=== PATIENT | female | born 1945 | race Caucasian/White ===

== ENCOUNTER 2025-03-10 10:40 | Outpatient (AMB) | payer MEDICARE, SELFPAY ==
--- NOTE | 2025-03-10 10:51 | MHC.OFFVIS ---
Intake Visit Reasons: 6mnth Allergies erythromycin base (ERYTHROMYCIN BASE) Allergy (Unknown, Unverified 02/11/20 15:30) ABD PAIN, VOMITING tetracycline (TETRACYCLINE) Allergy (Unknown, Unverified 02/11/20 15:30) ABD PAIN, VOMITING Erythrocin Allergy (Unknown, Uncoded 07/16/19 00:00) HPI Comments Details: 79 yo RH woman with atrial fibb, s/p cardiac pacemaker, anxiety, insomnia, and benign essential tremor. She is presenting with concerns regarding medication management and persistent fatigue. Currently prescribed trazodone and escitalopram, the patient reports effective insomnia management with trazodone, while noting increased fatigue potentially related to escitalopram usage. She describes a mild tremor, reduced in severity compared to earlier, and questions whether age or medication is predominantly affecting her energy levels. [facility] Medical History (Updated 03/10/25 @ 11:00 by Epifanio Grove MD) Insomnia Anxiety disorder Benign essential tremor Review of Systems Const Details: - Psychiatric: Reports taking trazodone for insomnia and escitalopram for depression and anxiety. - Neurologic: Reports mild tremor that is less bothersome. - General: Reports increased fatigue; denies need for medication refills. Physical Exam Neuro Other: Mental Status: Alert and oriented to person, place, and time. Normal attention. Normal spontaneous speech, fluency, and comprehension. Cranial Nerves: CN II: Visual sam full to confrontation, visual acuity intact. CN III, IV, : Pupils equal, round, reactive to light and accommodation. Extraocular movements are normal. CN V: Facial sensation is normal. CN VII: Facial movements symmetrical. CN VIII: Hearing intact to bedside conversation is normal. CN IX, X: Palate elevates symmetrically. CN XI: Shoulder shrug and head turn symmetrical. CN XII: Tongue midline without atrophy or fasciculations. Extrapyramidal: Full facial expressions and blinking. No rigidity. Movements are appropriate with no tremor or abnormality. Speech: Normal; no dysarthria or tremor. Assessment & Plan Assessment & Plan (1) Benign essential tremor: Code(s): G25.0 - Essential tremor Category: Medical (2) Anxiety disorder: Code(s): F41.9 - Anxiety disorder, unspecified Category: Medical Qualifiers: Anxiety disorder type: other anxiety disorder Qualified Code(s): F41.8 - Other specified anxiety disorders (3) Insomnia: Code(s): G47.00 - Insomnia, unspecified Category: Medical Qualifiers: Insomnia type: unspecified Qualified Code(s): G47.00 - Insomnia, unspecified (4) Fatigue: Code(s): R53.83 - Other fatigue Category: Medical Qualifiers: Fatigue type: due to depression Qualified Code(s): F32.A - Depression, unspecified; R53.83 - Other fatigue Plan Impression: a:Benign essential tremor, mild affecting hands and head b: Insomnia, psychosocial, better with trazodone c: Anxiety managed with escitaloprim d: Fatigue, probably multifactorial Rec: a: Escitaloprim 20mg a day b. Trazodone 50mg one at bedtime c: TSH d: Walk daily Orders: Orders Thyroid Stimulating Hormone Today R53.83 - Other fatigue Coding Level of Care Code Est Pt Level 4 (46767) Diagnoses Benign essential tremor G25.0 Other specified anxiety disorders F41.8 Anxiety disorder type: other anxiety disorder Insomnia, unspecified type G47.00 Insomnia type: unspecified Fatigue due to depression F32.A; R53.83 Fatigue type: due to depression
--- OUTSIDE RECORDS SUMMARY | 2025-03-10 12:44 | XMS_ITS | Clinical Summary ---
Author Organization [facility] Address [address] [place] [address] Phone Care Team Providers Care Cement Rubber Name Role Phone Jesenia Watters HORSE TREKKING GUIDE Primary Care Provider Allergies Active Allergy Reactions Criticality Noted Date Comments Erythromycin Anaphylaxis,Nausea And Vomiting High Tetracycline Nausea And Vomiting High 12/16/2017 Medications exemestane (AROMASIN) 25 mg tablet Take 25 mg by mouth daily. Active esomeprazole (NexIUM) [address] capsule Take 20 mg by mouth every morning (before breakfast). Active metoprolol succinate (TOPROL-XL) 100 mg 24 hr tablet TAKE 1 TABLET BY MOUTH ONCE DAILY 07/06/2019 Active atorvastatin (LIPITOR) 10 mg tablet TAKE 1 TABLET BY MOUTH DAILY 06/17/2018 Active warfarin (COUMADIN) 6 mg tablet TAKE 1 TABLET DAILY DIRECTED BY [facility] 90 tablet 3 01/20/2025 Active escitalopram (LEXAPRO) 20 mg tablet Take 1 tablet (20 mg total) by mouth 1 (one) time each day. Active Active Problems Problem Noted Date Diagnosed Date Actinic keratosis 09/25/2023 Overview (03/02/2024): Last Assessment & Plan: Patient has developed a significant lesion on the right side of her face to the catholic area that looks like an actinic keratosis. She says it is draining at night. I have put in a referral to dermatology told her that she needs to contact us to follow-up on that or contact her primary care physician to get the referral process. But I did put the referral into the system so she can get an appointment to get evaluated Sick sinus syndrome ([facility] V24, [facility] V28) 0 09/23/2023 Assessment & Plan (04/13/2024 10:25 AM EST): Patient has history of sick sinus syndrome with history of a 6-second sinus pause noted in the past. She subsequently underwent placement of a dual chamber pacemaker. She continues with remote monitoring and routine visits to our device clinic. She will go to device clinic today to have device check since she is feeling some sensations over her device. Arm pain 02/21/2023 Overview (03/02/2024): Last Assessment & Plan: Patient complains of left arm pain which she attributes to an automatic blood pressure cuff use no the pain onset was weeks after the cuff was used. She has rotator cuff issues and not able to raise the shoulder well I think she needs to be seen by orthopedics. She has a neurology appointment for tremor which I told her most likely will focus on the tremor and not on anything going on with the arm my recommendation is that a referral to orthopedic surgery be put in place after a great deal discussion she has agreed and I put the order in for the referral Atrial fibrillation ([facility] V24, [facility] V28) 1 07/18/2019 Assessment & Plan (02/03/2025 12:25 PM EDT): Patient with tachybradycardia syndrome. Interrogation of her pacemaker has not shown much in the way of breakthrough A-fib but she remains chronically anticoagulated for elevated CHADS2 score with warfarin because she cannot afford Eliquis. She has had no bleeding or side effects with use of warfarin. Her pacemaker is pacing approximately 60% of the time atrial paced. She has had no symptoms of any presyncope since the device was placed but was having significant episodes of presyncope prior to the placement of device. She will continue with anticoagulation. Will continue to monitor for breakthrough A-fib. And her device has 8 years of generator left. Orders: ECG 12 lead Assessment & Plan (04/13/2024 10:25 AM EST): Patient is history of tachybradycardia syndrome and paroxysmal atrial fibrillation. She has had some episodes of paroxysmal atrial fibrillation captured on her device monitoring. She was previously on amiodarone but stopped it due to side effects. She continues on warfarin for anticoagulation given her elevated [id number] score of 5 representing a 7.2% risk for thromboembolism. She denies any symptoms when she is in atrial fibrillation. She does not want to have sleep study. She does not want to go back on amiodarone. We will update an echocardiogram. Orders: ECG 12 lead Transthoracic echocardiogram (TTE) complete with PRN contrast, bubble, strain, and 3D order panel; Future Type 2 diabetes mellitus ([facility] V24, [facility] V 28) 12/26/2017 Overview (03/02/2024): Diet Osteoporosis 12/26/2017 Overview (03/02/2024): DEXA 2015 Hypertension 12/24/2017 Assessment & Plan (02/03/2025 12:25 PM EDT): Blood pressure is well-controlled at this time Orders: ECG 12 lead Assessment & Plan (04/13/2024 10:25 AM EST): Patient is blood pressure is under good control with a reading today of 126/80. She continues on metoprolol. Hyperlipidemia 12/16/2017 Assessment & Plan (02/03/2025 12:25 PM EDT): Patient's had no evidence of Orders: ECG 12 lead Lipid panel with reflex to direct LDL; Future Assessment & Plan (04/13/2024 10:25 AM EST): Patient continues on atorvastatin 10 mg once a day. GERD (gastroesophageal reflux disease) 8 Anxiety and depression 12/16/2017 Resolved Problems Problem Noted Date Diagnosed Date Resolved Date Syncope 08/06/2023 04/13/2024 Overview (03/02/2024): Last Assessment & Plan: The patient suffered an episode of syncope at home and she has been very coy with her other responses but it seems that she has had some other lightheaded episodes. She has paroxysmal A-fib but is never shown us any prolonged sinus or recovery times she was previously monitored about 6 months ago when she suffered a near syncopal episode in our office. I think at this point we need to re-echo her we need to set her up for another R OCT monitor for 30 days but I think at this point given the traumatic fall that she had at home and the fact that she requires anticoagulation for her A- fib the patient needs an implantable loop recorder. So we have made an appointment for an echo and for an R OCT her implantable loop recorder appointment to be seen by our staff is in August so to be a month or 2 before is actually implanted. But will have the R OCT in place for 4 weeks to try to capture any any arrhythmias. The last 1 did not show anything other than her A-fib. There is no evidence of heart failure on exam there is no evidence of valvular disease on exam and no evidence of heart failure Encounters Date Type Department Care Team Description 03/05/2025 Lab [facility] Cardiology [facility] [address] [place] [phone] Ana Real MD Atrial fibrillation, unspecified type (CMS/HCC V24, CMS/HCC V28) 02/26/2025 Lab [facility] Cardiology [facility] [address] [place] [phone] Ana Real MD Atrial fibrillation, unspecified type (CMS/HCC V24, CMS/HCC V28) 02/19/2025 Lab [facility] Cardiology [facility] [address] [place] [phone] Ana Real MD Atrial fibrillation, unspecified type (CMS/HCC V24, CMS/HCC V28) 02/18/2025 Anticoagulation - Warfarin Visit [facility] Cardiology [facility] [address] [place] [address] Ana Real MD Atrial fibrillation, unspecified type (CMS/HCC V24, CMS/HCC V28) (Primary Dx) 02/12/2025 Lab [facility] Cardiology [facility] [address] [place] [address] Ana Real MD Atrial fibrillation, unspecified type (CMS/HCC V24, CMS/HCC V28) 02/05/2025 Lab [facility] [address] [place] [phone] Ana Real MD Atrial fibrillation, unspecified type (CMS/HCC V24, CMS/HCC V28) 02/04/2025 Anticoagulation - Warfarin Visit [facility] [address] [place] [address] Ana Real MD Atrial fibrillation, unspecified type (CMS/HCC V24, CMS/HCC V28) (Primary Dx) 02/03/2025 10:50 AM EDT Office Visit [facility] [address] [place] [address] Ana Real MD Atrial fibrillation, unspecified type (CMS/HCC V24, CMS/HCC V28) (Primary Dx); Primary hypertension; Mixed hyperlipidemia 01/29/2025 Anticoagulation - Warfarin Visit [facility] [address] [place] [address] Ana Real MD Atrial fibrillation, unspecified type (CMS/HCC V24, CMS/HCC V28) (Primary Dx) 01/29/2025 Lab [facility] [address] [place] [address] Ana Real MD Atrial fibrillation, unspecified type (CMS/HCC V24, CMS/HCC V28) 01/22/2025 Lab [facility] [address] [place] [address] Ana Real MD Atrial fibrillation, unspecified type (CMS/HCC V24, CMS/HCC V28) 01/21/2025 Anticoagulation - Warfarin Visit [facility] [address] [place] [address] Ana Real MD Atrial fibrillation, unspecified type (CMS/HCC V24, CMS/HCC V28) (Primary Dx) 01/15/2025 Lab [facility] [address] [place] [address] Ana Real MD Atrial fibrillation, unspecified type (CMS/HCC V24, CMS/HCC V28) 01/11/2025 1:15 AM EDT Ancillary Procedure [facility] [address] [place] [address] 01/08/2025 Lab [facility] [address] [place] [address] Ana Real MD Atrial fibrillation, unspecified type (CMS/HCC V24, CMS/HCC V28) 01/01/2025 Lab [facility] [address] [place] [address] Ana Real MD Atrial fibrillation, unspecified type (CMS/HCC V24, CMS/HCC V28) 12/31/2024 Anticoagulation - Warfarin Visit [facility] [address] [place] [address] Ana Real MD Atrial fibrillation, unspecified type (CMS/HCC V24, CMS/HCC V28) (Primary Dx) 12/25/2024 Lab [facility] [address] [place] [address] Ana Real MD Atrial fibrillation, unspecified type (CMS/HCC V24, CMS/HCC V28) 12/18/2024 Anticoagulation - Warfarin Visit [facility] [address] [place] [address] Ana Real MD Atrial fibrillation, unspecified type (CMS/HCC V24, CMS/HCC V28) (Primary Dx) 12/18/2024 Lab [facility] [address] [place] [address] Ana Real MD Atrial fibrillation, unspecified type ([facility] V24, [facility] V28) 12/11/2024 Lab [facility] [address] [place] [phone] Ana Real MD Atrial fibrillation, unspecified type ([facility] V24, [facility] V28) 12/10/2024 Anticoagulation - Warfarin Visit [facility] [address] [place] [phone] Ana Real MD Atrial fibrillation, unspecified type (CMS/[facility] V24, [facility] V28) (Primary Dx) from Last 3 Months Medical History Medical History Date Comments Actinic keratosis 09/25/2023 Sinus pause 09/23/2023 Syncope 08/06/2023 Arm pain 02/21/2023 Atrial fibrillation ([facility] V24, [facility] V28) 1 07/18/2019 Type 2 diabetes mellitus ([facility] V24, [facility] V 28) 12/26/2017 Diet Osteoporosis 12/26/2017 DEXA 2015 Hypertension 12/24/2017 Hyperlipidemia 12/16/2017 GERD (gastroesophageal reflux disease) 8 Anxiety and depression 12/16/2017 Family History Medical History Relation Name Comments Alcohol abuse Brother Heart attack Brother Heart attack Father age 87 Heart attack Mother age 70 Anxiety disorder Other Son Depression Other Son Relation Name Status Comments Brother Father Mother Other Social History Tobacco Use Types Packs/Day Years Used Date Smoking Tobacco: Former Cigarettes Smokeless Tobacco: Never Tobacco Cessation:Counseling Given: Not Answered Alcohol Use Standard Drinks/Week Comments Not Currently 0 (1 standard drink = 0.6 oz pur e alcohol) Comments Unknown Sex and Gender Information Value Date Recorded Sex Assigned at Not on file Legal Sex Female 9:46 AM EST Gender Identity Not on file Sexual Orientation Not on file Obstetrics History Last Filed Vital Signs Vital Sign Reading Time Taken Comments Blood Pressure 128/78 02/03/2025 11:00 AM EDT Pulse 73 02/03/2025 11:00 AM EDT Temperature - - Respiratory Rate - - Oxygen Saturation 96% 02/03/2025 11:00 AM EDT Inhaled Oxygen Concentration - - Weight 70.1 kg (154 lb 8 oz) 02/03/2025 11:00 AM EDT Height 154.9 cm (5' 1 ) 02/03/2025 11:00 AM EDT Body Mass Index 29.19 02/03/2025 11:00 AM EDT Plan of Treatment Upcoming Encounters Date Type Department Care Team (Latest Contact Info) Description 03/12/2025 Lab [facility] [address] [place] [address] [place] [address] Ana Real MD [address] [place] [address] [address] [place] [address] Atrial fibrillation, unspecified type (CMS/HCC V24, CMS/HCC V28) 10/05/2025 10:00 AM EDT Ancillary Procedure [facility] Cardiology [facility] [address] [place] [address] Health Maintenance Due Date Last Done Comments Diabetes: Annual Foot Exam 1955 Diabetes: Annual Retina Eye Exam 1955 DTaP,Tdap,and Td Vaccines (1 - Tdap) 1965 Pneumococcal Vaccine: 50+ Years (1 of 2 - PCV) 1965 Zoster Vaccines (1 of 2) 1965 Diabetes: Annual GFR (Glomerular Filtration Rate) 08/28/2019 08/27/2018 RSV Immunization Adult Patients (1 - 1-dose 75+ series) 2021 Falls Risk Assessment 05/05/2022 Hepatitis C Screening 05/05/2022 Medicare Annual Wellness Visit 05/05/2022 Osteoporosis Screening (Bone Density Screening) 05/05/2022 Social Influencers of Health Screening 05/05/2022 Hypertension/CHF/CAD Annual BMP Blood Test 05/06/2022 08/27/2018 Diabetes: Annual Urine Albumin-Creatinine Ratio (uACR) 05/10/2022 08/27/2018 Diabetes: Blood Sugar Control Test (HGBA1C) 05/10/2022 08/27/2018 Depression Screening 05/27/2024 COVID-19 Vaccine ( season) 2025 04/14/2021, 08/20/2020, 07/23/2020 Influenza Vaccine (#1) 2025 , 05/14/2023, 05/09/2022, Additional history exists Cholesterol Screening (Lipid Panel) 02/18/2030 02/18/2025, 08/27/2018 HIB Vaccines Aged Out No longer eligi ble based on patient's age to complete this topic HPV Vaccines Aged Out No longer eligi ble based on patient's age to complete this topic Hepatitis A Vaccines Aged Out No long er eligible based on patient's age to complete this topic Hepatitis B Vaccines Aged Out No long er eligible based on patient's age to complete this topic IPV Vaccines Aged Out No longer eligi ble based on patient's age to complete this topic MMR Vaccines Aged Out No longer eligi ble based on patient's age to complete this topic Meningococcal ACWY Vaccine Aged Out N o longer eligible based on patient's age to complete this topic Meningococcal B Vaccine Aged Out No l onger eligible based on patient's age to complete this topic RSV Immunization Patients Under 20 months Aged Out No longer eligible based on patient's age to complete this topic Varicella Vaccines Aged Out No longer eligible based on patient's age to complete this topic Medical Devices Implanted Type Area Public Utilities Sales Representative Device Identifier Shelf Expiration Date Model / Serial / Lot Henry-Stju 2272 Assurity Mri(Tm) [id number] Implanted: (Quantity not on file) Cardiac Pacemaker [employer] 2272 ASSURITY MRI(TM) / [id number] / Abbt-Stju Assurity Mri [id number] Implanted: (Quantity not on file) Cardiac Pacemaker [employer]- [employer] ASS[employer] MRI 2272 / [id number] / Procedures Procedure Name Priority Date/Time Associated Diagnosis Comments LIPID PANEL WITH LDL AND HDL RATIO Routine 02/18/2025 11:19 AM EDT PROTHROMBIN TIME WITH INR Routine 02/18/2025 11:19 AM EDT Atrial fibrillation, unspecified type (CMS/HCC V24, CMS/HCC V28) PROTHROMBIN TIME WITH INR Routine 02/03/2025 12:11 PM EDT Atrial fibrillation, unspecified type (CMS/HCC V24, CMS/HCC V28) ECG 12-LEAD Routine 02/03/2025 11:09 AM EDT Atrial fibrillation, unspecified type (CMS/HCC V24, CMS/HCC V28) Primary hypertension Mixed hyperlipidemia PROTHROMBIN TIME WITH INR Routine 01/28/2025 10:59 AM EDT Atrial fibrillation, unspecified type (CMS/HCC V24, CMS/HCC V28) PROTHROMBIN TIME WITH INR Routine 01/20/2025 11:08 AM EDT Atrial fibrillation, unspecified type (CMS/HCC V24, CMS/HCC V28) CARDIAC DEVICE CHECK- REMOTE- MURJ Routine 01/11/2025 1:14 AM EDT PROTHROMBIN TIME WITH INR Routine 12/31/2024 11:09 AM EDT Atrial fibrillation, unspecified type (CMS/HCC V24, CMS/HCC V28) PROTHROMBIN TIME WITH INR Routine 12/17/2024 10:59 AM EDT Atrial fibrillation, unspecified type (CMS/HCC V24, CMS/HCC V28) PROTHROMBIN TIME WITH INR Routine 12/10/2024 11:14 AM EDT Atrial fibrillation, unspecified type (CMS/HCC V24, CMS/HCC V28) URINE ALBUMIN CREATININE RATIO Routine 08/27/2018 ANNUAL BMP BLOOD TEST Routine 08/27/2018 HEMOGLOBIN A1C Routine 08/27/2018 from Last 3 Months or Most Recently Relevant to Health Maintenance Results * Lipid panel with LDL and HDL ratio (02/18/2025 11:19 AM EDT) Cholesterol Total 136 100 - 199 mg/dL [facility] Triglycerides 93 0 - 149 mg/dL [facility] HDL Cholesterol 43 >39 mg/dL [facility] VLDL Cholesterol Calculated 18 5 - 40 mg/dL [facility] LDL Chol Calc (NIH) 75 0 - 99 mg/dL [facility] LDL/HDL Ratio 1.7 0.0 - 3.2 ratio [facility] Comment: LDL/HDL Ratio Men Women 1/2 Avg.Risk 1.0 1.5 Avg.Risk 3.6 3.2 2X Avg.Risk 6.2 5.0 3X Avg.Risk 8.0 6.1 02/18/2025 11:1 9 AM EDT 02/18/2025 Narrative [facility] - 02/19/2025 3:06 AM EDT Performed at: [address] [id number] Last Sorter: Vani Antony MD, Phone: [phone] Ana Real MD LAB BLOOD ORDERABLES Final Res ult Performing Organization Address [facility] Co de Phone Number [facility] * (ABNORMAL) Prothrombin time with INR (02/18/2025 11:19 AM EDT) Only the most recent of7 resultswithin the time period is included. [facility] International Normalized Ratio (INR) 2.2(H) 0.9 - 1.1 [facility] 1 Prothrombin Time 21.4(H) 9.2 - 11.4 SEC [facility] 1 Blood Venous blood specimen / Unknown 02/18/2025 11:19 AM EDT 02/18/2025 Narrative [facility] - 02/18/2025 3:29 PM EDT Performed at: [address] [place] [address], [place], [place] [id number] Last Sorter: Julio Barajas MD, Phone: [phone] Ana Real MD LAB BLOOD ORDERABLES Final Res ult Performing Organization Address City/[facility]/ZIP Co de Phone Number [facility] * ECG 12 lead (02/03/2025 11:09 AM EDT) [facility] Ventricular Rate ECG 63 BPM GEMUSE Atrial Rate 63 BPM GEMUSE P-R Interval 244 ms GEMUSE QRS Duration 106 ms GEMUSE Q-T Interval 424 ms GEMUSE QTc 433 ms GEMUSE P Wave [place] 28 degrees GEMUSE R [place] -59 degrees GEMUSE T [place] 19 degrees GEMUSE ECG Interpretation Atrial-paced rhythm with prolonged AV conduction Left axis deviation Incomplete right bundle branch block Anteroseptal infarct (cited on or before 13-APR-2024) Abnormal ECG When compared with ECG of 13-APR-2024 09:53, Incomplete right bundle branch block is now Present Questionable change in initial forces of Septal leads Questionable change in initial forces of Lateral leads Confirmed by Álvaro REAL, ANA ([id number]) on 02/03/2025 12:28:03 PM GEMUSE 02/03/2025 11:0 9 AM EDT 02/03/2025 12:28 PM EDT us Ana Real MD ECG ORDERABLES Final Result GEMUSE * Cardiac device check - Remote- MURJ (01/11/2025 1:14 AM EDT) Date Time Interrogation Session [id number] CV DEVICE CHECK Type Interrogation Session Remote Scheduled CV DEVICE CHECK Implantable Pulse Generator [employer] Sales Representative [employer] CV DEVICE CHECK Implantable Pulse Generator Type IPG CV DEVICE CHECK Implantable Pulse Generator Model 2272 Assurity MRI(TM) CV DEVICE CHECK Implantable Pulse Generator Serial Number [id number] CV DEVICE CHECK Implantable Pulse Generator Implant Date [id number] CV DEVICE CHECK Battery Remaining Percentage 82.00 CV DEVICE CHECK Battery Remaining Longevity 97.0 CV DEVICE CHECK Battery Voltage 3.020 CV D EVICE CHECK Battery BURNING MACHINE OPERATOR Trigger 2.600 CV DEVICE CHECK Battery Status Middle of Service CV DEVICE CHECK Esequiel Statistic RA Percent Paced 68.00 CV DEVICE CHECK Esequiel Statistic RV Percent Paced 1.40 CV DEVICE CHECK Atrial Tachy Statistic AT/AF Varna Percent 3.00 CV DEVICE CHECK Lead Channel Sensing Intrinsic Amplitude 2.400 CV DEVICE CHECK Lead Channel Setting Sensing Sensitivity 0.30 CV DEVICE CHECK Lead Channel Impedance Value 430 CV DEVICE CHECK Lead Channel Pacing Threshold Amplitude 0.875 CV DEVICE CHECK Lead Channel Pacing Threshold Pulse Width 0.4 CV DEVICE CHECK Lead Channel RA Pacing Threshold Date 2025-01-01 CV DEVICE CHECK Lead Channel Setting Pacing Amplitude 1.875 CV DEVICE CHECK Lead Channel Setting Pacing Pulse Width 0.4 CV DEVICE CHECK Lead Channel Sensing Intrinsic Amplitude 12.000 CV DEVICE CHECK Lead Channel Setting Sensing Sensitivity 0.50 CV DEVICE CHECK Lead Channel Impedance Value 480 CV DEVICE CHECK Lead Channel Setting Pacing Amplitude 2.500 CV DEVICE CHECK Lead Channel Setting Pacing Pulse Width 0.4 CV DEVICE CHECK Esequiel Setting Mode (NBG Code) DDDR CV DEVICE CHECK Esequiel Setting Lower Rate Limit 60 CV DEVICE CHECK Esequiel Setting AT Mode Switch Rate 180 CV DEVICE CHECK Esequiel Setting Maximum Tracking Rate 120 CV DEVICE CHECK Esequiel Setting Maximum Sensor Rate 120 CV DEVICE CHECK Esequiel Setting PAV Delay 225 CV DEVICE CHECK Esequiel Setting JAYMIE Delay 200 CV DEVICE CHECK Date of Service 2025-01-11 CV DEVICE CHECK Anatomical Region Laterality Modality Device Interroga tion 01/01/2025 4:22 AM EDT Impressions 01/10/2025 7:42 PM EDT Normal Remote: With Events * Normal Device Function * Events or Alerts: 13 * AF episodes stable burden * Battery: Battery is at 82%, 8.08 yrs * Sensing, impedance and thresholds reviewed * Programmed parameters reviewed * Presenting rhythm reviewed * Heart Rate Histograms reviewed Narrative Procedure Note Anthony Loving MD - 01/11/2025 IMPRESSION: Normal Remote: With Events * Normal Device Function * Events or Alerts: 13 * AF episodes stable burden * Battery: Battery is at 82%, 8.08 yrs * Sensing, impedance and thresholds reviewed * Programmed parameters reviewed * Presenting rhythm reviewed * Heart Rate Histograms reviewed Result [facility] Anthony Loving MD CV IMPLANTABLE CARDIAC DEV ICE PROCEDURES Final Result * Urine Albumin Creatinine Ratio (08/27/2018) Pathologist [facility] Urine Albumin Creatinine Ratio Abstracted Result [facility] Historical Provider HEALTH MAINTENANCE Final Result * Annual BMP Blood Test (08/27/2018) Pathologist [facility] Annual BMP Blood Test Abstracted Result [facility] Historical Provider HEALTH MAINTENANCE Final Result * Hemoglobin A1c (08/27/2018) Hemoglobin A1C 5.8 <=6.5 % Blood Venous blood specimen / Unknown us Historical Provider LAB BLOOD ORDERABLES Yojana l Result from Last 3 Months or Most Recently Relevant to Health Maintenance Insurance [employer] - [place] MEDICARE ADVANTAGE Care Teams Cement Rubber Relationship Specialty Start Date End Date Jesenia Watters NP [address] [facility] [place] [address] PCP - General 09/25/23
--- OUTSIDE RECORDS SUMMARY | 2025-03-10 12:44 | XMS_ITS | Data Portability ---
Author Organization [facility], Allergy Address [address] [place] [phone] Care Team Providers Care Laborer Heading Name Role Phone RUEL SCOTT Primary Care Provider [phone] MARGARITA PONCE Referring Provider Assessment No assessment recorded. Plan of Treatment Reminders Order Date Submit Date Provider Last Modified By Organization Details Last Modified Time Details Appointments None record ed. Lab None record ed. Referral None record ed. Procedures None record ed. Surgeries None record ed. Imaging None record ed. Medication Orders None record ed. Patient TargetsNo targets recorded. Patient InstructionsNo instructions recorded. Reason for Referral None Reported. Problems Name Problem SNOMED Code Status Onset Date Resolution Date Notes Provider Name and Address Organization Details Recorded Time Impacted cerumen of bilateral ears 47459222593929 08 Active 2024 PRIYA THACKER MD [address], [address] 5 13:39:30 Problem Notes None recorded. Medical Equipment None Reported. Allergies Allergen ID Allergen Name Allergen Category Reaction Reaction Severity Criticality Documentation Date Start Date Code Code System Note Provider Name and Address Organization Details Recorded Time 225933 erythromy palomo medicatio n Not available Not available Not available 09/01/2024 4053 RxNorm Dana davey [facility] 5 13:09:27 Medications Name Sig Start Date Stop Date Status Note LastModified by Organization Details LastModified Time trazodone 50 mg tablet TAKE 1 TABLET BY MOUTH EVERY DAY AT BEDTIME NEEDED FOR 90 DAYS active Not Available Not Available No t Available atorvastati n 10 mg tablet TAKE 1 TABLET BY MOUTH EVERY DAY active Not Available Not Available No t Available amiodarone 200 mg tablet TAKE 1 TABLET BY MOUTH EVERY DAY 09/01 completed Not Available Not Available Not Available metoprolol succinate ER 100 mg tablet,exte nded release 24 hr TAKE 1 TABLET BY MOUTH EVERY DAY active Not Available Not Available No t Available sulfamethox azole 800 mg-trimetho prim 160 mg tablet TAKE 1 TABLET BY MOUTH TWICE A DAY FOR 7 DAYS 09/01 completed Not Available Not Available Not Available warfarin 6 mg tablet TAKE 1 TABLET DAILY DIRECTED BY [facility] active Not Available Not Available No t Available lorazepam 0.5 mg tablet TAKE 1 TABLET BY MOUTH ONCE DAILY NEEDED FOR ANXIETY 09/01 completed Not Available Not Available Not Available exemestane 25 mg tablet TAKE 1 TABLET BY MOUTH EVERY DAY active Not Available Not Available No t Available propafenone 225 mg tablet TAKE 1 TABLET BY MOUTH TWICE A DAY 09/01 completed Not Available Not Available Not Available triamcinolo ne acetonide 0.1 % topical ointment APPLY TOPICALLY 3 TIMES A DAY FOR 14 DAYS APPLY A THIN FILM TO AFFECTED AREA 09/01 completed Not Available Not Available Not Available mupirocin 2 % topical ointment APPLY TO BIOPSY SITE DAILY UNTIL HEALED 09/01 completed Not Available Not Available Not Available escitalopra m 10 mg tablet TAKE 1 AND 1/2 TABLETS BY MOUTH EVERY DAY 09/01 completed Not Available Not Available Not Available escitalopra m 20 mg tablet TAKE 1 TABLET BY MOUTH EVERY DAY FOR 90 DAYS active Not Available Not Available No t Available Vitals Date Recorded Body height Body mass index (BMI) Body weight Provider Name and Address Organization Details Last Updated DateTime 09/01/2024 156.21 cm 31.6 kg/m2 69033.7 g Dana Dooley [facility] 09/01/2024 13:09:13 Social History None recorded. Functional Status None recorded. Mental Status None recorded. Family History Nothing Reported. Medical History Condition Response Cancer Y Depression Y Gynecological HistoryNo gynecological history recorded. Obstetrics History GPAL:G 0 P 0 0 0 0 Past Encounters Encounter ID Performer Location Encounter Start Date Encounter Closed Date Diagnosis/Indication Diagnosis SNOMED-CT Code Diagnosis ICD10 Code Diagnosis IMO Codes Diagnosis Note [id number] PRIYA THACKER MD [facility] on [address] [place] [address] 09/01/2024 12:47:31 09/01/2024 14:45:57 Impacted cerumen of bilateral ears [id number] 572419 H61.23 Completely impacted cerumen was removed on the right and partially impacted cerumen was removed on the left. She still felt a little blockage in the right ear but deferred audiogram at this time.She has some scaling over the temporal scalp. I counseled her that this would not be connected to the ear symptoms. She should continue follow-up with her dermatolog ist as needed. Health Concerns Section Related Observation LastModified by Organization Detai ls LastModified Time None Recorded Concern Status LastModified by Organization Details LastModified Time None Recorded Advance Directives Directive None Recorded Payers Insurance Date Sequence Insurance Name Policy Number Policy Rae Covered Member ID Rae Member ID Guarantor Name 10/01/2024 1 [facility]: MEDICARE HMO BLUE (MEDICARE REPLACEMENT HMO) [id number] Sherice Corley [id number] Sherice Corley Notes Date Note Type Note Provider Name and Address Organization Details Recorded Time 09/01/2024 text/html ROS as noted in the HPI 79 yo F here for evaluation of the earsears blockedhas been getting skin infections above the earsbiopsies above the ear, have showed infection has been on abx and ointment PRIYA THACKER MD [address] [place] [address], [phone], [facility] - [facility] 09/06/2024 08:48:38 OBGyn Episode No OBEpisode recorded.
--- OUTSIDE RECORDS SUMMARY | 2025-03-10 12:44 | XMS_ITS | Encounter Summary ---
Author Organization [facility] Address [address] [place] [address] Care Team Providers Care Strategic Planning Specialist Name Role Phone Jesenia Watters Fady WOMEN NURSE Primary Care Provider + [phone] Encounter Details Date Type Department Care Team (Late st Contact Info) Description 03/05/2025 Lab [facility] [address] [facility] [address] [place] [address] Long Real MD [address] [place] [address] [address] [place] [address] Atrial fibrillation, unspecified type (CMS/HCC V24, CMS/HCC V28) Social History Tobacco Use Types Packs/Day Years Used Date Smoking Tobacco: Former Cigarettes Smokeless Tobacco: Never Alcohol Use Standard Drinks/Week Comments Not Currently 0 (1 standard drink = 0.6 oz pur e alcohol) Comments Unknown Sex and Gender Information Value Date Recorded Sex Assigned at Not on file Legal Sex Female 9:46 AM EST Gender Identity Not on file Sexual Orientation Not on file documented as of this encounter Plan of Treatment Upcoming Encounters Date Type Department Care Team (Latest Contact Info) Description 03/12/[address] [facility] [address] [facility] [address] [place] [address] Long Real MD [address] [place] [address] [address] [place] [address] Atrial fibrillation, unspecified type (CMS/HCC V24, CMS/HCC V28) 10/05/2025 10:00 AM EDT Ancillary Procedure [facility] [address] [place] [address] documented as of this encounter Visit Diagnoses Diagnosis Atrial fibrillation, unspecified type ([facility] V24, [facility] V28) Atrial fibrillation, unspecified type ([facility] V24, [facility] V28) Encounter for adjustment or management of cardiac device documented in this encounter Orders Lab Orders Without Results Count Last Ordered D ate First Ordered Date PROTHROMBIN TIME WITH INR 1 03/05/2025 documented in this encounter Care Teams Strategic Planning Specialist Relationship Specialty Start Date End Date Jesenia Watters NP [address] [facility] [place] [address] PCP - General 09/25/23 documented as of this encounter
== END 2025-03-10 11:04 | disposition home or self-care (01) ==
LOC: HO.HSM 10:40
PROVIDERS: PCP Nurse Practitioner Family; Referring Provider Nurse Practitioner Family; Visit Provider Psychiatry & Neurology Neurology
DX: G25.0 Essential tremor (principal); F41.8 Other specified anxiety disorders; G47.00 Insomnia, unspecified; F32.A Depression, unspecified; R53.83 Other fatigue
CPT/HCPCS: 99214

== ENCOUNTER → 2025-03-10 10:40 | Outpatient (BNVA) | payer MEDICARE, SELFPAY | PROVIDERS: PCP Nurse Practitioner Family; Referring Provider Nurse Practitioner Family; Visit Provider Psychiatry & Neurology Neurology | DX: G25.0 Essential tremor (principal); F41.8 Other specified anxiety disorders; G47.00 Insomnia, unspecified; F32.A Depression, unspecified; R53.83 Other fatigue | CPT/HCPCS: 99212 ==